=== PATIENT | female | born 1985 | race American Indian/Alaskan Native ===

== ENCOUNTER 2018-01-14 01:01 | Emergency (ER) | payer SELFPAY ==
[2018-01-14 01:33] VITALS: BP 126/85
[2018-01-14] MEDS ORDERED: PEPCID PO ONE (01:35)
== END 2018-01-14 02:55 | disposition left against medical advice (07) ==
LOC: ED 01:01
DX: R06.2 Wheezing (principal); Z53.21 Procedure and treatment not carried out due to patient leaving prior to being seen by health care provider
CPT/HCPCS: J2930